=== PATIENT | male | born 1980 | race Caucasian/White ===

== ENCOUNTER 2022-02-11 00:38 | Emergency (ER) | payer MEDICAID ==
[~2022-02-11] VITALS: Ht 193 cm; Wt 86.2 kg
[2022-02-11 00:43] VITALS: BP 109/70
--- NOTE | 2022-02-11 00:47 | NUR ---
PT BIBA FOR ETOH INTOXICATION, REPORT GIVEN BY EMS, PT PLACED IN ED 7, REPORT GIVEN TO WENDY KAYE.
--- NOTE | 2022-02-11 00:47 | NUR ---
PT DESTINY BLS. TAKEN TO BED 7
--- NOTE | 2022-02-11 00:50 | NUR ---
PT UP AMBULATING IN THE ED WITH SLOW STEADY GAIT. PT NOT WANTING TO STAY. DENIES ANY NEED FOR MEDICAL TREATMENT. BUT WANTS INFORMATION SO HE CAN FOLLOW UP WITH FACILITY OR COUNSELOR FOR ETOH.
--- NOTE | 2022-02-11 00:51 | NUR ---
Dr. Younger examining patient.
--- NOTE | 2022-02-11 01:22 | NUR ---
Patient discharged with v/s stable. Written and verbal after care instructions given and explained. Patient verbalized understanding. Ambulatory with steady gait. All questions addressed prior to discharge. PT WILL CALL HIS MOTHER FOR A RIDE. Advised to follow up with PMD. DETOX FACILITIES AND INFORMATION PROVIDED TO PT.
== END 2022-02-11 02:19 | disposition home or self-care (01) ==
LOC: MED 00:38
DX: F10.129 Alcohol abuse with intoxication, unspecified (principal); F17.200 Nicotine dependence, unspecified, uncomplicated; F15.90 Other stimulant use, unspecified, uncomplicated; Y90.9 Presence of alcohol in blood, level not specified
CPT/HCPCS: 99283